=== PATIENT | male | born 2005 | race Caucasian/White ===

== ENCOUNTER 2025-08-04 01:16 | Inpatient (IN) ==
--- NOTE | 2025-08-04 01:36 | Emergency Department Note ---
Impression & Plan Pancreatitis Admission ED Provider Note HPI: History obtained from patient. The patient is a 20-year-old gentleman who presents the emergency department with chief complaint of abdominal pain as well as nausea and vomiting. Patient states that his pain has been worsening throughout the day, he states he woke up this morning with a stomachache and then gradually the symptoms seem to worsen. Patient states he vomited about 5 times today. On arrival here to the ED the patient is hemodynamically stable, he is saturating well on room air, he is afebrile on arrival. ROS: - Per HPI Differential Diagnosis: Viral gastroenteritis, acute appendicitis, acute gastritis, acute pancreatitis, acute cholecystitis, amongst other potential pathologies. *Outpatient medications and allergy history reviewed. PE: General: Alert HEENT: Normocephalic, trachea midline Eyes: Extraocular eye movement is intact, no scleral erythema Pulmonary: Clear to auscultation bilaterally, no wheezing Cardio: Regular rate and rhythm GI: Abdomen is soft to palpation, there is moderate tenderness over the epigastric region to palpation without guarding or rigidity : No suprapubic tenderness MSK: No evidence of trauma or malformation of the extremities, no edema Skin: No evidence of rash Neuro: Alert, no focal deficits Psychiatric: Cooperative INDEPENDENT INTERPRETATIONS: campus monitor: (As interpreted by myself): - An order was placed for continuous cardiac monitoring - Patient was noted to be in sinus rhythm with a rate of 65 Interventions provided in ED: - IV fluid bolus, IV Tylenol, IV Zofran Medical Decision Making: IV was established and lab work obtained, patient was placed on monitor technician. Lab work shows a leukocytosis of 14.9, hemoglobin is normal, platelet count is normal, CMP does not show any evidence of any critical findings, bilirubin is mildly elevated at 1.7, AST of 52, lipase is noted to be elevated at 1182. CT imaging of the abdomen pelvis does show evidence of acute pancreatitis. On my reevaluation the patient does tell me that he has been drinking more heavily since college started several months ago, he states that he drinks 4-5 times per week but over the past week he has actually been drinking every day. Patient states when he does drink alcohol he usually drinks until he passes out. Therefore, I suspect this is likely alcohol induced. I discussed admission with the patient, he is in agreement. [facility] hospitalist service was consulted for admission and the patient was placed for admission in stable condition. Consultants/Discussions held with other healthcare providers: - Hospitalist, Dr. Salas Disposition discussion held by myself with: - Patient Diagnosis: 1. Acute pancreatitis 2. Alcohol use disorder, acute Disposition: Admission Jun Yousif DO Emergency Medicine Past Med/Surg History Problem List Pancreatitis (Acute) No significant past surgical history Medical History Concussion Surgical History No significant past surgical history Social History Smoking Status: Never smoker Tobacco Type: E-cigarettes / Vaping Preferred Language: Croatian marital status: Single current occupational status: student Feels Safe at Home: Yes Allergies Allergies Allergy/AdvReac Type Severity Reaction Status Date / Time No Known Allergies Allergy Verified 08/04/25 02:14 Home Meds Home Medications Medication Instructions Recorded Confirmed No Known Home Medications 02/11/23 08/04/25 Results & Data (ED) Vital Signs Vital Signs - 24 hr 08/04/25 01:20 08/04/25 01:24 08/04/25 01:29 Temperature 36.9 C Temperature Source Temporal Artery Scan Pulse Rate 97 H 80 Pulse Rate [Apical] Pulse Rhythm Regular Pulse Strength Normal Respiratory Rate 18 Respiratory Effort / Characteristics Non-Labored Spontaneous Respiratory Depth Normal Respiratory Pattern Regular Blood Pressure 122/81 Blood Pressure [Right Arm] Blood Pressure Mean 94 Blood Pressure Mean [Right Arm] Blood Pressure Position Sitting Pulse Oximetry 97 100 Oxygen Delivery Method Room Air Room Air Sepsis Recent Fever Within 48 Hours No Sepsis New/Unexplained Change in Mental Status N/A Sepsis Action Taken by Nursing No Action Required 08/04/25 02:00 Temperature Temperature Source Pulse Rate Pulse Rate [Apical] 63 Pulse Rhythm Pulse Strength Respiratory Rate 17 Respiratory Effort / Characteristics Non-Labored Respiratory Depth Normal Respiratory Pattern Regular Blood Pressure Blood Pressure [Right Arm] 140/90 Blood Pressure Mean Blood Pressure Mean [Right Arm] 106 Blood Pressure Position Pulse Oximetry 100 Oxygen Delivery Method Room Air Sepsis Recent Fever Within 48 Hours Sepsis New/Unexplained Change in Mental Status Sepsis Action Taken by Nursing Laboratory Data 08/04/25 01:24 08/04/25 01:24 Lab Results 08/04/25 08/04/25 Range/Units 01:24 01:28 WBC 14.92 H (4.8-10.8) K/ul RBC 6.21 H (4.70-6.10) M/uL Hgb 17.5 (14.0-18.0) g/dl Hct 52.5 H (42.0-52.0) % MCV 84.5 (80.0-100.0) fL MCH 28.2 (25.0-34.0) pg MCHC 33.3 (32.0-36.0) g/dL RDW Std Deviation 43.5 (36.4-46.3) fL RDW Coeff of David 14.5 (11.5-14.5) % Plt Count 280 (130-400) K/uL MPV 8.8 L (9.4-12.4) fL Immature Gran % (Auto) 0.4 % Neut % (Auto) 72.4 % Lymph % (Auto) 17.8 % [place] % (Auto) 8.6 % Eos % (Auto) 0.1 % Baso % (Auto) 0.7 % Neut # (Auto) 10.79 H (1.40-6.50) K/uL Lymph # (Auto) 2.66 (1.20-3.40) K/uL [place] # (Auto) 1.29 H (0.11-0.59) K/uL Eos # (Auto) 0.02 (0.00-0.50) K/uL Baso # (Auto) 0.10 (0.00-0.20) K/uL Immature Gran # (Auto) 0.06 (0.01-0.20) K/uL Sodium 136 (136-145) mmol/L Potassium 4.0 (3.5-5.1) mmol/L Chloride 98 (98-107) mmol/L Carbon Dioxide 28 (21-32) mmol/L Anion Gap 10 (3-11) BUN 17 (6-23) mg/dl Creatinine 1.15 (0.6-1.4) mg/dl Est Cr Clr Drug Dosing 111.5 ml/min eGFR 92.86 BUN/Creatinine Ratio 14.8 (10-20) Glucose 110 H (70-99(Fasting)) mg/dl Calcium 9.7 (8.6-10.3) mg/dl Total Bilirubin 1.7 H (0.2-1.0) mg/dl AST 52 H (13-39) U/L ALT 36 (7-52) U/L Alkaline Phosphatase 79 (34-104) U/L Total Protein 8.4 H (6.0-8.3) gm/dl Albumin 5.0 (3.4-5.0) gm/dl Globulin 3.4 (2.5-4.0) gm/dl Albumin/Globulin Ratio 1.5 (0.9-2) Lipase 1182 H (11-82) U/L Urine Color Dark Yellow Urine Appearance Clear (Clear) Urine pH 6.0 (4.5-7.5) Ur Specific [place]anan 1.034 H (1.000-1.030) Urine Protein 1+ H (Negative) Urine Glucose (UA) Negative (Negative) Urine Ketones Negative (Negative) Urine Blood Negative (Negative) Urine Nitrite Negative (Negative) Urine Bilirubin Negative (Negative) Urine Urobilinogen Negative (Negative) Ur Leukocyte Esterase Negative (Negative) Urine WBC (Auto) 0-5 (0-5) /hpf Urine RBC (Auto) 0-2 (0-2) /hpf U Hyaline Cast (Auto) 3-5 H (0-2) /lpf U Epithel Cells (Auto) 0-2 (0-2) /hpf Urine Bacteria (Auto) None Seen (None Seen) Urine Mucus Present A (None Prsent) Urine Comment Administered Medications Discontinued Medications Sodium Chloride (Nss) 1,000 mls @ 999 mls/hr IV .Q1H1M ONE Stop: 08/04/25 02:34 Last Admin: 08/04/25 01:44 Dose: 999 mls/hr Documented By: SANFORD Acetaminophen (Ofirmev) 1,000 mg in 100 mls @ 400 mls/hr IV NOW STA Stop: 08/04/25 02:01 Last Infusion: 08/04/25 02:26 Dose: Infused Documented By: [facility] Admin: 08/04/25 01:50 Dose: 400 mls/hr Documented By: SANFORD Ioversol (Optiray 320 100ml) 93 ml IV ONCE ONE Stop: 08/04/25 02:32 Last Admin: 08/04/25 02:31 Dose: 93 ml Documented By: PIPER Morphine Sulfate (Morphine Sulfate 4 Mg/Ml 1 Ml Carp\Vial) 4 mg IV NOW STA Stop: 08/04/25 01:35 Last Admin: 08/04/25 01:48 Dose: Not Given Documented By: ML Ondansetron HCl (Ondansetron Inj 2 Mg/Ml 2 Ml Vial) 4 mg IV NOW STA Stop: 08/04/25 01:35 Last Admin: 08/04/25 01:44 Dose: 4 mg Documented By: SANFORD Imaging Data Radiologist's Impression: Abdomen/Pelvis CT 08/04/25 01:34 EXAM: CT abd pelvis IV con only CLINICAL HISTORY: Mid abdominal pain, nausea and vomiting TECHNIQUE: Multiple contiguous axial images were obtained from the level of the diaphragm to the pubic symphysis. This study was acquired after the IV administration of iodinated contrast material, given the patient's indications for the examination. If IV contrast material had not been administered, the likelihood of detecting abnormalities relevant to the patient's condition would have been substantially decreased. Coronal and sagittal reformatted images were generated and reviewed to improve anatomic localization and optimize lesion detection. CT scan was performed according to ALARA (as low as reasonably achievable). COMPARISON: none. FINDINGS: The visualized lung bases are clear. ABDOMEN/PELVIS: The liver is enlarged in size, measuring 18.8 cm in craniocaudal dimension, and shows diffuse parenchymal hypoenhancement. No focal liver lesions are seen. There is no intrahepatic or extrahepatic biliary ductal dilatation. The hepatic vasculature is patent. The gallbladder is unremarkable. The pancreatic head and body are bulky and heterogeneously enhancing, with peripancreatic fluid at the head region and extension of fluid along the right anterior pararenal space. The spleen and adrenal glands are unremarkable. The kidneys are normal in size and attenuation. There is no hydronephrosis or perinephric fat stranding. No renal calculi or renal masses are identified. The ureters are normal in caliber, and no ureteral calculi are seen. The bladder is empty. The prostate is unremarkable. No evidence of focal or diffuse bowel wall thickening or evidence of bowel obstruction is seen. The appendix is visualized in the right lower quadrant and appears within normal limits. No adenopathy or fluid collections are seen. The aorta is normal in caliber. No aggressive appearing osseous lesions are identified. IMPRESSION: 1. Features of acute interstitial pancreatitis with peripancreatic fluid. 2. Moderate hepatomegaly with diffuse hepatic steatosis. Electronically signed by Rocco Cabral 08-04-2025 02:56 AM Discharge Plan Visit Data Chief Complaint: Abdominal Pain Stated Complaint: ABD PAIN, BLOATED ED Provider: Jun Yousif Discharge Problem: Pancreatitis Patient Disposition: Admitted As Inpatient Condition: Fair Forms Stand Alone Forms: [facility] Blink Booking, Important Visit Information Prescriptions Prescriptions: No Action No Known Home Medications Referrals Referrals: [facility] [Primary Care Provider] - Discharge Problem: Pancreatitis Qualifiers: Chronicity: acute Pancreatitis type: alcohol induced Acute pancreatitis complication: unspecified Qualified Code(s): K85.20 - Alcohol induced acute pancreatitis without necrosis or infection
[2025-08-04] MEDS: ONDANSETRON INJ 2 MG/ML 2 ML VIAL IV STA (01:44)
[2025-08-04] MEDS: SODIUM CHLORIDE 0.9% 1,000 ML IV ONE ×2 (01:44→03:03)
[2025-08-04 01:48] LABS: Hematocrit (blood only) 52.5 % (42.0-52.0); Hemoglobin 17.5 g/dl (14.0-18.0); Immature Granulocytes # (auto) 0.06 K/uL (0.01-0.20); Immature Granulocytes % (auto) 0.4 %; Mean Corpuscular Hemoglobin 28.2 pg (25.0-34.0); Mean Corpuscular Volume 84.5 fL (80.0-100.0); Platelet Count 280 K/uL (130-400); RDW Standard Deviation 43.5 fL (36.4-46.3); Red Blood Count 6.21 M/uL (4.70-6.10); White Blood Count 14.92 K/ul (4.8-10.8)
[2025-08-04] MEDS: MoRPHine SULFATE 4 MG/ML 1 ML CARP\\VIAL IV STA ×2 (01:48→03:37)
[2025-08-04] MEDS: ACETAMINOPHEN 1,000 MG/100 ML VIAL IV STA (01:50)
[2025-08-04 01:58] LABS: Appearance Urine Clear (Clear); Bacteria Urine Automated None Seen (None Seen); Epithelial Cell Urine Auto 0-2 /hpf (0-2); Glucose Urine UA Negative (Negative); RBC Urine Automated 0-2 /hpf (0-2); WBC Urine Automated 0-5 /hpf (0-5)
[2025-08-04 02:02] LABS: Anion Gap 10 (3-11); Blood Urea Nitrogen 17 mg/dl (6-23); Calcium 9.7 mg/dl (8.6-10.3); Carbon Dioxide 28 mmol/L (21-32); Chloride 98 mmol/L (98-107); Creatinine Clr Calc Pharmacy 111.5 ml/min; Glucose 110 mg/dl (70-99(Fasting)); Potassium 4.0 mmol/L (3.5-5.1); Sodium 136 mmol/L (136-145)
[2025-08-04 02:19] LABS: Alanine Aminotransferase 36 U/L (7-52); Albumin Globulin Ratio 1.5 (0.9-2); Albumin Level 5.0 gm/dl (3.4-5.0); Alkaline Phosphatase 79 U/L (34-104); Bilirubin,Total 1.7 mg/dl (0.2-1.0); Globulin 3.4 gm/dl (2.5-4.0); Lipase 1182 U/L (11-82); Total Protein 8.4 gm/dl (6.0-8.3)
[2025-08-04] MEDS: OPTIRAY 320 100ml IV ONE (02:31)
--- NOTE | 2025-08-04 02:56 | CT Scan Report ---
EXAM: CT abd pelvis IV con only CLINICAL HISTORY: Mid abdominal pain, nausea and vomiting TECHNIQUE: Multiple contiguous axial images were obtained from the level of the diaphragm to the pubic symphysis. This study was acquired after the IV administration of iodinated contrast material, given the patient's indications for the examination. If IV contrast material had not been administered, the likelihood of detecting abnormalities relevant to the patient's condition would have been substantially decreased. Coronal and sagittal reformatted images were generated and reviewed to improve anatomic localization and optimize lesion detection. CT scan was performed according to ALARA (as low as reasonably achievable). COMPARISON: none. FINDINGS: The visualized lung bases are clear. ABDOMEN/PELVIS: The liver is enlarged in size, measuring 18.8 cm in craniocaudal dimension, and shows diffuse parenchymal hypoenhancement. No focal liver lesions are seen. There is no intrahepatic or extrahepatic biliary ductal dilatation. The hepatic vasculature is patent. The gallbladder is unremarkable. The pancreatic head and body are bulky and heterogeneously enhancing, with peripancreatic fluid at the head region and extension of fluid along the right anterior pararenal space. The spleen and adrenal glands are unremarkable. The kidneys are normal in size and attenuation. There is no hydronephrosis or perinephric fat stranding. No renal calculi or renal masses are identified. The ureters are normal in caliber, and no ureteral calculi are seen. The bladder is empty. The prostate is unremarkable. No evidence of focal or diffuse bowel wall thickening or evidence of bowel obstruction is seen. The appendix is visualized in the right lower quadrant and appears within normal limits. No adenopathy or fluid collections are seen. The aorta is normal in caliber. No aggressive appearing osseous lesions are identified. IMPRESSION: 1. Features of acute interstitial pancreatitis with peripancreatic fluid. 2. Moderate hepatomegaly with diffuse hepatic steatosis. Electronically signed by Rocco Cabral 08-04-2025 02:56 AM
--- NOTE | 2025-08-04 03:36 | History & Physical Report ---
Date of Service August 04, 2025 Assessment & Plan (1) Pancreatitis, alcoholic, acute: (2) Nausea and vomiting: (3) Alcohol use disorder: (4) Abnormal LFTs (liver function tests): Plan Patient is a 20-year-old [employer] student who presented due to abdominal pain, nausea, vomiting that worsened throughout the day found to have pancreatitis with a lipase of 1182. This is thought to be secondary to alcohol use disorder. #pancreatitis - Suspect 2/2 alcohol use disorder. No previous history of pancreatitis. Leukocytosis, WBC 14.92. Lipase 1182. CTAP admission showing acute pancreatitis, moderate hepatomegaly, diffuse hepatic steatosis, no gallbladder abnormalities. Is not on any home medications. 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 Typically drinks 3 to 4 days/week at baseline. - no symptoms of withdrawal on admission - AWSS at risk protocol with IV Ativan - Thiamine IV 100mg and folic acid 1mg IV QAM - folate, B12, B1 levels ordered - Etoh level ordered - seizure precautions #elevated t bili - likely 2/2 pancreatitis above. T bili 1.7, AST 52, remained LFTs WNL. - trend CMP VTE ppx: SCDs, low risk Dispo: med/tele Admission and Anticipated Discharge Date Admission Date: 08/04/25 History of Present Illness Chief Complaint: abdominal pain Primary Care Provider: [facility] Patient is a 20-year-old [employer] student who presented due to abdominal pain, nausea, vomiting that worsened throughout the day found to have pancreatitis with a lipase of 1182. This is thought to be secondary to alcohol use disorder. Patient seen at bedside. He stated throughout the day he has had worsening abdominal pain currently very significant however unable to quantify on the pain scale, pain does radiate to his back. He has had 1 dose of Tylenol 1G IV, morphine 4 Mg IV ordered to trial. He stated he vomited approximately 5 times today without any hematemesis. He also endorses dyspnea as it is difficult to breathe with his pain. Patient stated that during the college school year he does drink often typically 3-4 times per week in which she does blackout. This past week he has however drink every single day to the point of blacking out, he typically drinks liquor and stated he probably had 15-16 shots per day this week. He stated he does go several weeks occasionally without drinking like when he is home on breaks and does endorse signs of withdrawal during these breaks such as tachycardia, nausea, diaphoresis. He denies ever having a seizure from alcohol withdrawal. He does not take any medications at home. He wishes to be full code. He stated his family does have a history of high cholesterol. Allergies Allergy/AdvReac Type Severity Reaction Status Date / Time No Known Allergies Allergy Verified 08/04/25 02:14 Home Medications Medication Instructions Recorded Confirmed Type No Known Home Medications 02/11/23 08/04/25 History Past Med/Surg History Problem List Abnormal LFTs (liver function tests) Nausea and vomiting Pancreatitis, alcoholic, acute Alcohol use disorder Pancreatitis (Acute) No significant past surgical history Medical History Concussion Surgical History No significant past surgical history Social History Smoking Status: Light tobacco smoker Tobacco Type: Cigarettes Second Hand Exposure: No; Do You Dip or Chew Tobacco: No; Tobacco Cessation Education Requested by Patient: No Hx Alcohol Use: Yes Alcohol type: hard liquor Hx Substance Use: Yes Preferred Language: Spanish Communication Ability: Effective Beliefs That Will Affect Care: None marital status: Single Current Living Situation: Other Current Living Situation Comment: roommate current occupational status: student Other Information That Helps Us Care for You: No Feels Safe at Home: Yes Safety Concerns: Feels Safe At This Time Assistive Devices: None Review of Systems Review of Systems: see HPI Physical Exam Physical Exam: The patient is awake, alert and oriented 3, well developed and well nourished, normocephalic and atraumatic, in no acute distress. Non-toxic appearing. HEENT- EOMI, mucous membranes moist. Hearing grossly intact. Heart-normal S1 and S2. No murmurs, rubs or gallops. Lungs-clear bilaterally, no respiratory distress, no accessory muscle use. Abdomen-normal bowel sounds and soft. No ascites noted. Tender to epigastric re gion. Extremities- no clubbing, cyanosis, or edema. Rheumatologic-normal range of motion. Psychiatric-normal affect. Results & Data Results & Data Vital Signs (Past 12 Hours) Vital Signs Temp Pulse Pulse Resp BP BP Pulse Ox 08/04/25 02:00 63 17 140/90 100 08/04/25 01:29 80 08/04/25 01:24 100 08/04/25 01:20 36.9 C 97 H 18 122/81 97 O2 Del Method 08/04/25 02:00 Room Air 08/04/25 01:29 08/04/25 01:24 Room Air 08/04/25 01:20 Room Air Laboratory Results reviewed cbc, cmp, lipase, ua Diagnostic Findings reviewed AP CT Medications Administered ED - 2L NSS bolus, Morphine 4 mg IV, Tylenol 1G IV, Zofran 4 Mg IV Code Status & VTE Plan Code Status Full code VTE Prophylaxis Plan VTE Prophylaxis will be ordered: Yes Supervising Physician Co-Signing Physician Notes Attending addendum: I have physically seen this patient, have supervised the JEMMA's activities, and agree with the H&P unless as otherwise noted. Assessment and Plan: Patient is a 20-year-old male [employer] student with no significant past medical history who presents to the emergency department with abdominal pain, nausea, vomiting worsened throughout the day. Laboratories showed a lipase of 1182, AST 52, total bilirubin 1.7. Urinalysis with negative. Pancreatitis- Patient reports he drinks up to 15 drinks a day until he passes out. CT scan abdomen pelvis with acute interstitial pancreatitis, moderate hepatomegaly, and diffuse hepatic steatosis. Clear liquid diet advance as tolerated Status post 2 L normal saline bolus in the ED Continue IV fluid rehydration with LR at 50 mL/h x 1 L Zofran 4 mg IV every 6 hours as needed Avoid Tylenol Check a fasting lipid panel to assess triglyceride levels Follow serial CBC with differential and chemistry profile Alcohol use disorder- Counseling AWSS protocol with IV Ativan Thiamine 100 mg IV now and folic acid 1 mg IV now, and then every morning Ordered alcohol level Seizure precautions Remaining orders and notations as noted PG Care Time/CCT Total # of Minutes Spent Total Time Spent with Patient: Total time spent is greater than 50% in coordination of care (as documented) at patient's floor/unit and/or counseling patient: Coding Level of Care Code 27948 INT INP/OBS CARE 375MIN Diagnoses Pancreatitis, alcoholic, acute K85.20 Nausea and vomiting R11.2 Alcohol use disorder F10.90 Abnormal LFTs (liver function tests) R79.89
[2025-08-04 04:05] LABS: Cholesterol 125 mg/dl (0-200); HDL Cholesterol 31 mg/dl; Triglycerides 589 mg/dl (0-150)
[2025-08-04] MEDS ORDERED: LORazepam Inj 1 MG in SYRINGE 0.5 ML IV PRN (05:04)
[2025-08-04] MEDS ORDERED: ACETAMINOPHEN 1,000 MG/100 ML VIAL IV PRN (05:04)
[2025-08-04] MEDS ORDERED: ONDANSETRON INJ 2 MG/ML 2 ML VIAL IV PRN (05:04)
[2025-08-04] MEDS ORDERED: NALOXONE HCL 0.4 MG/1 ML VIAL/CARP IV PRN (05:04)
[2025-08-04] MEDS ORDERED: MoRPHine SULFATE 4 MG/ML 1 ML CARP\\VIAL IV PRN (05:23)
[2025-08-04 05:36] LABS: INR 1.1 (0.9-1.1); Prothrombin Time 11.6 Seconds (9.0-12.0)
[2025-08-04 05:43] LABS: Folate (Folic Acid),Ser orPlas 16.08 ng/ml (>5.38)
[2025-08-04 05:44] LABS: Vitamin B12 286.0 pg/ml (180-914)
[2025-08-04] MEDS: LACTATED RINGER'S 1,000 ML IV SCH (05:44)
[2025-08-04] MEDS: MoRPHine SULFATE 4 MG/ML 1 ML CARP\\VIAL IV PRN (06:42)
[2025-08-04 08:17] LABS: Hemoglobin A1C 5.1 % (4.5-5.6)
[2025-08-04] MEDS: FOLIC ACID 1 MG in SYRINGE 9.8 ML IV SCH (08:55)
[2025-08-04] MEDS: THIAMINE HCL 100 MG in SYRINGE 9 ML IV SCH (08:55)
--- NOTE | 2025-08-04 15:00 | Hospitalist Progress Note ---
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 This is thought to be secondary to alcohol use disorder. #pancreatitis - Suspect 2/2 alcohol use disorder. No previous history of pancreatitis. Leukocytosis, WBC 14.92. Lipase 1182. CTAP admission showing acute pancreatitis, moderate hepatomegaly, diffuse hepatic steatosis, no gallbladder abnormalities. Is not on any home medications. - received 2L NSS in ED; continue with fluid resuscitation with LR @ 150 ml/hr - clear liquid diet, advance as tolerated - nausea control with Zofran prn - pain control with IV Tylenol 1G prn, morphine 2/4mg for breakthrough pain - lipid panel ordered to eval triglyceride levels - trend CBC and CMP - still some pain, conintue NPO and IVF with parentaral pain mgmt. Resume diet tomorrow if doing well. 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 Typically drinks 3 to 4 days/week at baseline. - no symptoms of withdrawal on admission - AWSS at risk protocol with IV Ativan - Thiamine IV 100mg and folic acid 1mg IV QAM - folate, B12, B1 levels ordered - Etoh level ordered - seizure precautions #elevated t bili - likely 2/2 pancreatitis above. T bili 1.7, AST 52, remained LFTs WNL. - trend CMP, AM check VTE ppx: SCDs, low risk Dispo: med/tele Admission and Anticipated Discharge Date Admission Date: August 04, 2025 Subjective slight amount of pain this morning mostly after starting his clear fluids. Will hold back and make him n.p.o. the rest of the day. Continue to monitor with conservative measures. no events or new concners. Physical Exam Physical Exam: The patient is awake, alert and oriented 3, well developed and well nourished, normocephalic and atraumatic, in no acute distress. Non-toxic appearing. HEENT- EOMI, mucous membranes moist. Hearing grossly intact. Heart-normal S1 and S2. No murmurs, rubs or gallops. Lungs-clear bilaterally, no respiratory distress, no accessory muscle use. Abdomen-normal bowel sounds and soft. No ascites noted. Tender to epigastric region. Extremities- no clubbing, cyanosis, or edema. Rheumatologic-normal range of motion. Psychiatric-normal affect. Results & Data Results & Data Vital Signs (Past 12 Hours) Vital Signs Temp Pulse Pulse Pulse Resp BP Pulse Ox 08/04/25 13:01 68 08/04/25 11:19 36.6 C 69 18 134/87 99 08/04/25 07:22 36.7 C 64 18 135/85 98 08/04/25 06:45 59 L 08/04/25 05:04 68 08/04/25 05:00 37.2 C 54 L 18 119/75 97 08/04/25 04:04 69 16 118/70 98 O2 Del Method 08/04/25 13:01 08/04/25 11:19 Room Air 08/04/25 07:22 Room Air 08/04/25 06:45 08/04/25 05:04 08/04/25 05:00 Room Air 08/04/25 04:04 Room Air Laboratory Results 08/04/25 08/04/25 08/04/25 04:35 01:28 01:24 WBC 14.92 H RBC 6.21 H Hgb 17.5 Hct 52.5 H MCV 84.5 MCH 28.2 MCHC 33.3 RDW Std Deviation 43.5 RDW Coeff of David 14.5 Plt Count 280 MPV 8.8 L Immature Gran % (Auto) 0.4 Neut % (Auto) 72.4 Lymph % (Auto) 17.8 [place] % (Auto) 8.6 Eos % (Auto) 0.1 Baso % (Auto) 0.7 Neut # (Auto) 10.79 H Lymph # (Auto) 2.66 [place] # (Auto) 1.29 H Eos # (Auto) 0.02 Baso # (Auto) 0.10 Immature Gran # (Auto) 0.06 PT 11.6 INR 1.1 Sodium 136 Potassium 4.0 Chloride 98 Carbon Dioxide 28 Anion Gap 10 BUN 17 Creatinine 1.15 Est Cr Clr Drug Dosing 111.5 eGFR 92.86 BUN/Creatinine Ratio 14.8 Glucose 110 H Estimat Average Glucose 100 Hemoglobin A1c 5.1 Calcium 9.7 Total Bilirubin 1.7 H AST 52 H ALT 36 Alkaline Phosphatase 79 Total Protein 8.4 H Albumin 5.0 Globulin 3.4 Albumin/Globulin Ratio 1.5 Triglycerides 589 H Cholesterol 125 LDL Cholesterol, Calc TNP VLDL Cholesterol, Calc TNP HDL Cholesterol 31 Cholesterol/HDL Ratio 4.0 Lipase 1182 H Vitamin B12 286 Folate 16.08 Urine Color Dark Yellow Urine Appearance Clear Urine pH 6.0 Ur Specific [place] 1.034 H Urine Protein 1+ H Urine Glucose (UA) Negative Urine Ketones Negative Urine Blood Negative Urine Nitrite Negative Urine Bilirubin Negative Urine Urobilinogen Negative Ur Leukocyte Esterase Negative Urine WBC (Auto) 0-5 Urine RBC (Auto) 0-2 U Hyaline Cast (Auto) 3-5 H U Epithel Cells (Auto) 0-2 Urine Bacteria (Auto) None Seen Urine Mucus Present A Urine Comment Ethyl Alcohol mg/dL < 10.0 Diagnostic Findings Abdomen/Pelvis CT 08/04/25 01:34 EXAM: CT abd pelvis IV con only CLINICAL HISTORY: Mid abdominal pain, nausea and vomiting TECHNIQUE: Multiple contiguous axial images were obtained from the level of the diaphragm to the pubic symphysis. This study was acquired after the IV administration of iodinated contrast material, given the patient's indications for the examination. If IV contrast material had not been administered, the likelihood of detecting abnormalities relevant to the patient's condition would have been substantially decreased. Coronal and sagittal reformatted images were generated and reviewed to improve anatomic localization and optimize lesion detection. CT scan was performed according to ALARA (as low as reasonably achievable). COMPARISON: none. FINDINGS: The visualized lung bases are clear. ABDOMEN/PELVIS: The liver is enlarged in size, measuring 18.8 cm in craniocaudal dimension, and shows diffuse parenchymal hypoenhancement. No focal liver lesions are seen. There is no intrahepatic or extrahepatic biliary ductal dilatation. The hepatic vasculature is patent. The gallbladder is unremarkable. The pancreatic head and body are bulky and heterogeneously enhancing, with peripancreatic fluid at the head region and extension of fluid along the right anterior pararenal space. The spleen and adrenal glands are unremarkable. The kidneys are normal in size and attenuation. There is no hydronephrosis or perinephric fat stranding. No renal calculi or renal masses are identified. The ureters are normal in caliber, and no ureteral calculi are seen. The bladder is empty. The prostate is unremarkable. No evidence of focal or diffuse bowel wall thickening or evidence of bowel obstruction is seen. The appendix is visualized in the right lower quadrant and appears within normal limits. No adenopathy or fluid collections are seen. The aorta is normal in caliber. No aggressive appearing osseous lesions are identified. IMPRESSION: 1. Features of acute interstitial pancreatitis with peripancreatic fluid. 2. Moderate hepatomegaly with diffuse hepatic steatosis. Electronically signed by Rocco Cabral 08-04-2025 02:56 AM PG Care Time/CCT Total # of Minutes Spent Total Time Spent with Patient: Total time spent is greater than 50% in coordination of care (as documented) at patient's floor/unit and/or counseling patient: Coding Level of Care Code 20102 SUB INP/OBS CARE 2/35MIN Diagnoses Pancreatitis, alcoholic, acute K85.20 Nausea and vomiting R11.2 Alcohol use disorder F10.90 Abnormal LFTs (liver function tests) R79.89
[2025-08-05 06:42] LABS: Hematocrit (blood only) 48.4 % (42.0-52.0); Hemoglobin 16.6 g/dl (14.0-18.0); Immature Granulocytes # (auto) 0.03 K/uL (0.01-0.20); Immature Granulocytes % (auto) 0.2 %; Mean Corpuscular Hemoglobin 29.1 pg (25.0-34.0); Mean Corpuscular Volume 84.9 fL (80.0-100.0); Platelet Count 166 K/uL (130-400); RDW Standard Deviation 43.7 fL (36.4-46.3); Red Blood Count 5.70 M/uL (4.70-6.10); White Blood Count 12.43 K/ul (4.8-10.8)
[2025-08-05 07:17] LABS: Alanine Aminotransferase 16.0 U/L (7-52); Albumin Globulin Ratio 1.3 (0.9-2); Albumin Level 3.5 gm/dl (3.4-5.0); Alkaline Phosphatase 57.0 U/L (34-104); Anion Gap 6.0 (3-11); Bilirubin,Total 2.0 mg/dl (0.2-1.0); Blood Urea Nitrogen 10.0 mg/dl (6-23); Calcium 9.0 mg/dl (8.6-10.3); Carbon Dioxide 29.0 mmol/L (21-32); Chloride 97.0 mmol/L (98-107); Creatinine Clr Calc Pharmacy 139.4 ml/min; Globulin 2.7 gm/dl (2.5-4.0); Glucose 96.0 mg/dl (70-99(Fasting)); Magnesium 1.7 mg/dl (1.7-2.4); Potassium 4.6 mmol/L (3.5-5.1); Sodium 132.0 mmol/L (136-145); Total Protein 6.2 gm/dl (6.0-8.3)
--- NOTE | 2025-08-05 15:41 | Hospitalist Progress Note ---
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 This is thought to be secondary to alcohol use disorder. #pancreatitis - Suspect 2/2 alcohol use disorder. No previous history of pancreatitis. Leukocytosis, WBC 14.92. Lipase 1182. CTAP admission showing acute pancreatitis, moderate hepatomegaly, diffuse hepatic steatosis, no gallbladder abnormalities. Is not on any home medications. - received 2L NSS in ED; continue with fluid resuscitation with LR @ 150 ml/hr - clear liquid diet, advance as tolerated - nausea control with Zofran prn - advance diet as tolerated, doing OK with clears today - recheck lipase in the AM - clinically improving, ready for DC once he is able to complete adequate PO #Hypertriglyceridemia -levels >500, no known Family history. This could well be secondary to his heavy recent alcohol use as well. - Will continue to monitor. Once he is out of the acute interval here he should follow-up in the primary clinic to antidiscussed lipid-lowering agents - discussed with rehabilitation case coordinator a referral to the residency clinic here such that he will have access to a broader spectrum of treatment options than likely through [facility] #alcohol use disorder - patient drinks more during the college school year, over the past week has had 15-16 shots of liquor per day to the point of "blacking out". Typically drinks 3 to 4 days/week at baseline. - no symptoms of withdrawal - discussed the role of alcohol in regards to pancreatitis with the patient today. He is very understanding. Advised total abstinence from alcohol moving forward #elevated t bili - likely 2/2 pancreatitis above. T bili 1.7, AST 52, remained L FTs WNL. - trend CMP VTE ppx: SCDs, low risk Dispo: med/tele Admission and Anticipated Discharge Date Admission Date: August 04, 2025 Subjective Doing okay this morning. A little bit of dyspepsia with eating breakfast. Only took mostly fluids. No return of actual pain. Small amount of urine. No new or different symptoms. We talked at length of the role of his triglycerides and ongoing alcohol use in regards to pancreatitis. He reported a very high risk history on presentation. He does not recall any specific family history but thinks an older relative may have had pancreatic issues. Otherwise no events or new concerns per nursing he is sleeping okay. Physical Exam Physical Exam: The patient is awake, alert and oriented 3, well developed and well nourished, normocephalic and atraumatic, in no acute distress. Non-toxic appearing. HEENT- EOMI, mucous membranes moist. Hearing grossly intact. Heart-normal S1 and S2. No murmurs, rubs or gallops. Lungs-clear bilaterally, no respiratory distress, no accessory muscle use. Abdomen-normal bowel sounds and soft. No ascites noted. Tender to epigastric region. Extremities- no clubbing, cyanosis, or edema. Rheumatologic-normal range of motion. Psychiatric-normal affect. Results & Data Results & Data Vital Signs (Past 12 Hours) Vital Signs Temp Pulse Pulse Resp BP Pulse Ox O2 Del Method 08/05/25 14:36 77 08/05/25 10:37 37.0 C 88 20 113/66 96 Room Air 08/05/25 07:32 84 08/05/25 07:24 37.0 C 84 20 129/83 98 Room Air Laboratory Results 08/05/25 05:36 WBC 12.43 H RBC 5.70 Hgb 16.6 Hct 48.4 MCV 84.9 MCH 29.1 MCHC 34.3 RDW Std Deviation 43.7 RDW Coeff of David 14.1 Plt Count 166 MPV 9.5 Immature Gran % (Auto) 0.2 Neut % (Auto) 83.2 Lymph % (Auto) 8.6 [place] % (Auto) 7.5 Eos % (Auto) 0.3 Baso % (Auto) 0.2 Neut # (Auto) 10.33 H Lymph # (Auto) 1.07 L [place] # (Auto) 0.93 H Eos # (Auto) 0.04 Baso # (Auto) 0.03 Immature Gran # (Auto) 0.03 Sodium 132 L Potassium 4.6 Chloride 97 L Carbon Dioxide 29 Anion Gap 6 BUN 10 Creatinine 0.92 Est Cr Clr Drug Dosing 139.4 eGFR 121.37 BUN/Creatinine Ratio 10.9 Glucose 96 Calcium 9.0 Magnesium 1.7 Total Bilirubin 2.0 H AST 24 ALT 16 Alkaline Phosphatase 57 C-Reactive Protein 11.26 H Total Protein 6.2 D Albumin 3.5 Globulin 2.7 Albumin/Globulin Ratio 1.3 PG Care Time/CCT Total # of Minutes Spent Total Time Spent with Patient: Total time spent is greater than 50% in coordination of care (as documented) at patient's floor/unit and/or counseling patient: Coding Level of Care Code 69131 SUB INP/OBS CARE 2/35MIN Diagnoses Pancreatitis, alcoholic, acute K85.20 Nausea and vomiting R11.2 Alcohol use disorder F10.90 Abnormal LFTs (liver function tests) R79.89
[2025-08-05] MEDS: ACETAMINOPHEN 500 MG TAB PO PRN (16:22)
[2025-08-06] MEDS: MELATONIN 3 MG TAB PO PRN (02:16)
[2025-08-06 06:32] LABS: Hematocrit (blood only) 45.2 % (42.0-52.0); Hemoglobin 14.9 g/dl (14.0-18.0); Immature Granulocytes # (auto) 0.07 K/uL (0.01-0.20); Immature Granulocytes % (auto) 0.6 %; Mean Corpuscular Hemoglobin 28.1 pg (25.0-34.0); Mean Corpuscular Volume 85.3 fL (80.0-100.0); Platelet Count 142 K/uL (130-400); RDW Standard Deviation 43.6 fL (36.4-46.3); Red Blood Count 5.30 M/uL (4.70-6.10); White Blood Count 11.20 K/ul (4.8-10.8)
[2025-08-06 07:25] LABS: Calcium 9.1 mg/dl (8.6-10.3); Carbon Dioxide 28.0 mmol/L (21-32); Chloride 97.0 mmol/L (98-107); Potassium 4.4 mmol/L (3.5-5.1); Sodium 133.0 mmol/L (136-145)
[2025-08-06 07:26] LABS: Alanine Aminotransferase 13.0 U/L (7-52); Albumin Globulin Ratio 1.0 (0.9-2); Albumin Level 3.3 gm/dl (3.4-5.0); Alkaline Phosphatase 52.0 U/L (34-104); Anion Gap 8.0 (3-11); Bilirubin,Total 1.6 mg/dl (0.2-1.0); Blood Urea Nitrogen 8.0 mg/dl (6-23); Creatinine Clr Calc Pharmacy 156.4 ml/min; Globulin 3.4 gm/dl (2.5-4.0); Glucose 86.0 mg/dl (70-99(Fasting)); Total Protein 6.7 gm/dl (6.0-8.3)
[2025-08-06] MEDS: DOCUSATE SODIUM 100 MG CAP PO PRN (08:24)
[2025-08-06 08:39] LABS: Lipase 461.0 U/L (11-82)
--- NOTE | 2025-08-06 11:23 | Hospitalist Progress Note ---
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 This is thought to be secondary to alcohol use disorder. #pancreatitis - Suspect 2/2 alcohol use disorder. No previous history of pancreatitis. Leukocytosis, WBC 14.92. Lipase 1182. CTAP admission showing acute pancreatitis, moderate hepatomegaly, diffuse hepatic steatosis, no gallbladder abnormalities. Is not on any home medications. - received 2L NSS in ED; continue with fluid resuscitation with LR @ 150 ml/hr - clear liquid diet, advance as tolerated - nausea control with Zofran prn - advance diet as tolerated, doing OK with clears today - recheck lipase in the AM with slow relative improvement, no clinical setback or deterioration, CRP increased overnight - Check RUQ US, continue cuatioous advance of diet, trend CRP and lipase - Low threshold to repeat CT pending US result #Hypertriglyceridemia -levels >500, no known Family history. This could well be secondary to his heavy recent alcohol use as well. - Will continue to monitor. Once he is out of the acute interval here he should follow-up in the primary clinic to antidiscussed lipid-lowering agents - discussed with family service caseworker a referral to the residency clinic here such that he will have access to a broader spectrum of treatment options than likely through [facility] - this has been setup by CM #alcohol use disorder - patient drinks more during the college school year, over the past week has had 15-16 shots of liquor per day to the point of "blacking out". Typically drinks 3 to 4 days/week at baseline. - no symptoms of withdrawal - discussed the role of alcohol in regards to pancreatitis with the patient today. He is very understanding. Advised total abstinence from alcohol moving forward #elevated t bili - likely 2/2 pancreatitis above. T bili 1.7, AST 52, remained LFTs WNL. - trend CMP VTE ppx: SCDs, low risk Dispo: med/tele Admission and Anticipated Discharge Date Admission Date: August 04, 2025 Subjective doing okay this morning. Appetite is increased a bit. He still having some pressure and discomfort in the abdomen. Mild tenderness to palpation. No nausea or vomiting. No diarrhea. family is present and does endorse that he has a strong family history of elevated cholesterol levels and family members multiple members with coronary disease and heart attacks but none with pancreatitis that we are aware of. Lengthy discussion with patient and mom who is present at the bedside in regards to risk factors and ongoing management. Physical Exam Physical Exam: The patient is awake, alert and oriented 3, well developed and well nourished, normocephalic and atraumatic, in no acute distress. Non-toxic appearing. HEENT- EOMI, mucous membranes moist. Hearing grossly intact. Heart-normal S1 and S2. No murmurs, rubs or gallops. Lungs-clear bilaterally, no respiratory distress, no accessory muscle use. Abdomen-normal bowel sounds and soft. No ascites noted. Tender to epigastric region now to RLQ, no guarding or rebound. Extremities- no clubbing, cyanosis, or edema. Rheumatologic-normal range of motion. Psychiatric-normal affect. Results & Data Results & Data Vital Signs (Past 12 Hours) Vital Signs Temp Pulse Resp BP Pulse Ox O2 Del Method 08/06/25 11:18 36.6 C 78 18 128/78 96 Room Air 08/06/25 07:57 36.7 C 75 18 106/69 96 Room Air 08/06/25 02:16 36.5 C 90 19 116/73 96 Room Air 08/05/25 23:37 37.0 C 85 18 128/79 96 Room Air Laboratory Results 08/06/25 05:32 WBC 11.20 H RBC 5.30 Hgb 14.9 Hct 45.2 MCV 85.3 MCH 28.1 MCHC 33.0 RDW Std Deviation 43.6 RDW Coeff of David 14.0 Plt Count 142 MPV 9.3 L Immature Gran % (Auto) 0.6 Neut % (Auto) 79.9 Lymph % (Auto) 9.8 [place] % (Auto) 8.3 Eos % (Auto) 1.0 Baso % (Auto) 0.4 Neut # (Auto) 8.95 H Lymph # (Auto) 1.10 L [place] # (Auto) 0.93 H Eos # (Auto) 0.11 Baso # (Auto) 0.04 Immature Gran # (Auto) 0.07 Sodium 133 L Potassium 4.4 Chloride 97 L Carbon Dioxide 28 Anion Gap 8 BUN 8 Creatinine 0.82 Est Cr Clr Drug Dosing 156.4 eGFR 128.17 BUN/Creatinine Ratio 9.8 L Glucose 86 Calcium 9.1 Total Bilirubin 1.6 H AST 22 ALT 13 Alkaline Phosphatase 52 C-Reactive Protein 16.62 H Total Protein 6.7 Albumin 3.3 L Globulin 3.4 Albumin/Globulin Ratio 1.0 Lipase 461 H PG Care Time/CCT Total # of Minutes Spent Total Time Spent with Patient: Total time spent is greater than 50% in coordination of care (as documented) at patient's floor/unit and/or counseling patient: Coding Level of Care Code 69381 SUB INP/OBS CARE 235MIN Diagnoses Pancreatitis, alcoholic, acute K85.20 Nausea and vomiting R11.2 Alcohol use disorder F10.90 Abnormal LFTs (liver function tests) R79.89
--- NOTE | 2025-08-06 14:50 | Ultrasound Report ---
US liver CLINICAL HISTORY: Pancreatitis, rule out stone. COMPARISON STUDY: CT of the abdomen and pelvis August 04, 2025. FINDINGS: A small left pleural effusion is incidentally noted. A small amount of upper abdominal asci deena is present. There is no biliary ductal dilatation. The common bile duct measures 4 mm in caliber. There are no gallstones within the gallbladder. Gallbladder wall thickness is at the upper limits of normal. No common bile duct calculi are identified. The pancreas is obscured by overlying bowel gas. There is no right hydronephrosis. IMPRESSION: 1. No gallstones. No biliary ductal dilatation. No common bile duct calculi identified. 2. Obscured pancreas. 3. Small amount of upper abdominal ascites and a small left pleural effusion. ACT 112: Negative or not required by law. Electronically signed by: Jaylan Ross M.D. 08/06/2025 2:49 PM
[2025-08-07 06:59] LABS: Hematocrit (blood only) 41.6 % (42.0-52.0); Hemoglobin 14.2 g/dl (14.0-18.0); Immature Granulocytes # (auto) 0.05 K/uL (0.01-0.20); Immature Granulocytes % (auto) 0.6 %; Mean Corpuscular Hemoglobin 29.1 pg (25.0-34.0); Mean Corpuscular Volume 85.2 fL (80.0-100.0); Platelet Count 172 K/uL (130-400); RDW Standard Deviation 42.3 fL (36.4-46.3); Red Blood Count 4.88 M/uL (4.70-6.10); White Blood Count 9.01 K/ul (4.8-10.8)
[2025-08-07 07:33] VITALS: RESP 18
[2025-08-07 07:37] LABS: Alanine Aminotransferase 11.0 U/L (7-52); Albumin Globulin Ratio 0.9 (0.9-2); Albumin Level 3.4 gm/dl (3.4-5.0); Alkaline Phosphatase 57.0 U/L (34-104); Anion Gap 6.0 (3-11); Bilirubin,Total 1.0 mg/dl (0.2-1.0); Blood Urea Nitrogen 10.0 mg/dl (6-23); Calcium 9.2 mg/dl (8.6-10.3); Carbon Dioxide 31.0 mmol/L (21-32); Chloride 98.0 mmol/L (98-107); Creatinine Clr Calc Pharmacy 166.6 ml/min; Globulin 3.7 gm/dl (2.5-4.0); Glucose 94.0 mg/dl (70-99(Fasting)); Lipase 175.0 U/L (11-82); Potassium 4.1 mmol/L (3.5-5.1); Sodium 135.0 mmol/L (136-145); Total Protein 7.1 gm/dl (6.0-8.3)
--- NOTE | 2025-08-07 09:39 | Gastrointestinal Consultation ---
Date of Consultation August 07, 2025 Assessment & Plan (1) Alcohol use disorder: 20 year old male without past medical history admitted w/ abdominal pain, nausea/vomiting w/ CT evidence of acute pancreatitis w/o appreciation of gallstones. Suspect his increase ETOH intake is related to this bout of panc reatitis. He has clinically improved, is tolerating low-fat diet and is pain free. He should continue with a low fat diet for the next 4-6 weeks. Discussed ETOH cessation in great detail. Advised complete abstinence from ETOH. He verbalized understand and is agreeable to a change in his lifestyle. He should follow up with his primary care provider as an OP given his elevated triglycerides. Outpa tient GI follow up regarding his fatty liver. As this is his first bout of pancreatitis and there is no family history, no further testing is needed. If there are recurrent bouts of pancreatitis, suggests he undergo genetic testing and further imaging at that time. I spent a total of 60 minutes on the date of service in review of patient's record, and previously obtained information in person and appropriate medical visit, discussion and education of plan, with patient and/or caregiver, placing orders for tests/referral/procedures as medically necessary and documentation of pertinent clinical information in patient's medical records for their visit today. Supervising Physician Co-Signing Physician Notes Patient seen prior to discharge. Reviewed with nurse practitioner I agree with plan as outlined above. This appears to be alcohol related pancreatitis. Patient has been advised at high risk of reoccurrence or recurrent pancreatitis with alcohol ingestion. Management is long-term abstinence. Return to see GI if recurrent or persistent abdominal pain. History of Present Illness Reason for Consultation: Pancretitis, poss familial hypertriglyceridemia Requesting Physician: Larry Velasquez MD Attending Physician: Larry Velasquez MD History of Present Illness 20 year old male without past medical history presenting on 08/04/25 w/ abdominal pain, nausea/vomiting - admitted w/ acute pancreatitis. GI was asked to evaluate. Pt was seen and evaluated, chart reviewed. Suggests 3-5 days a week he has significant ETOH intake which is estimated at 15+ shots at a time. Since admission, he has improved daily. Yesterday began dietary advancement which he notes he is tolerated. Just completed breakfast without abdominal pain. 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 Planning to move to a city after graduation. No family history of pancreatitis No previous bouts of pancreatitis Lipase 1182 -->175 TB 1.0 AST 19 ALT 11 ALKP 57 Triglycerides 589 ABD US: No gallstones. No biliary ductal dilatation. No common bile duct calculi identified.Obscured pancreas. Small amount of upper abdominal ascites and a small left pleural effusion. CTAP 2024: Features of acute interstitial pancreatitis with peripancreatic fluid. Moderate hepatomegaly with diffuse hepatic steatosis. Allergies Allergy/AdvReac Type Severity Reaction Status Date / Time No Known Allergies Allergy Verified 08/04/25 02:14 Home Medications Medication Instructions Recorded Confirmed Type No Known Home Medications 02/11/23 08/04/25 History Patient History Medical History Concussion Surgical History No significant past surgical history Social History Smoking Status: Light tobacco smoker Tobacco Type: Cigarettes Second Hand Exposure: No; Do You Dip or Chew Tobacco: No; Hx Alcohol Use: Yes Alcohol type: hard liquor Hx Substance Use: Yes Preferred Language: Belgian Communication Ability: Effective Beliefs That Will Affect Care: None marital status: Single Current Living Situation: Other Current Living Situation Comment: roommate current occupational status: student Feels Safe at Home: Yes Assistive Devices: None Review of Systems Review of Systems: All other findings negative except as noted in HPI. Physical Exam Constitutional: WD/WN, vitals as above Respiratory: normal respiratory effort, lungs clear to auscultation Cardiovascular: RRR, no murmur, no edema Gastrointestinal (Abdomen): normal bowel sounds, soft, nontender, no hepatosplenomegaly Skin: no rashes, warm and dry Results & Data Vital Signs (Past 12 Hours) Vital Signs Temp Pulse Pulse Resp BP Pulse Ox O2 Del Method 08/07/25 07:33 98.8 F 73 18 131/72 97 Room Air 08/07/25 06:45 72 08/07/25 02:59 98.4 F 76 16 108/72 96 Room Air 08/06/25 23:02 99.0 F 87 16 126/78 98 Room Air 08/06/25 22:05 82 Laboratory Results 08/07/25 Range/Units 06:30 WBC 9.01 (4.8-10.8) K/ul RBC 4.88 (4.70-6.10) M/uL Hgb 14.2 (14.0-18.0) g/dl Hct 41.6 L (42.0-52.0) % MCV 85.2 (80.0-100.0) fL MCH 29.1 (25.0-34.0) pg MCHC 34.1 (32.0-36.0) g/dL RDW Std Deviation 42.3 (36.4-46.3) fL RDW Coeff of David 13.5 (11.5-14.5) % Plt Count 172 (130-400) K/uL MPV 9.0 L (9.4-12.4) fL Immature Gran % (Auto) 0.6 % Neut % (Auto) 79.4 % Lymph % (Auto) 10.2 % [place] % (Auto) 7.7 % Eos % (Auto) 1.7 % Baso % (Auto) 0.4 % Neut # (Auto) 7.16 H (1.40-6.50) K/uL Lymph # (Auto) 0.92 L (1.20-3.40) K/uL [place] # (Auto) 0.69 H (0.11-0.59) K/uL Eos # (Auto) 0.15 (0.00-0.50) K/uL Baso # (Auto) 0.04 (0.00-0.20) K/uL Immature Gran # (Auto) 0.05 (0.01-0.20) K/uL Sodium 135 L (136-145) mmol/L Potassium 4.1 (3.5-5.1) mmol/L Chloride 98 (98-107) mmol/L Carbon Dioxide 31 (21-32) mmol/L Anion Gap 6 (3-11) BUN 10 (6-23) mg/dl Creatinine 0.77 (0.6-1.4) mg/dl Est Cr Clr Drug Dosing 166.6 ml/min eGFR 130.62 BUN/Creatinine Ratio 13.0 (10-20) Glucose 94 (70-99(Fasting)) mg/dl Calcium 9.2 (8.6-10.3) mg/dl Total Bilirubin 1.0 D (0.2-1.0) mg/dl AST 19 (13-39) U/L ALT 11 (7-52) U/L Alkaline Phosphatase 57 (34-104) U/L C-Reactive Protein 14.66 H (0-0.5) mg/dl Total Protein 7.1 (6.0-8.3) gm/dl Albumin 3.4 (3.4-5.0) gm/dl Globulin 3.7 (2.5-4.0) gm/dl Albumin/Globulin Ratio 0.9 (0.9-2) Lipase 175 H (11-82) U/L Procalcitonin 0.16 (0-0.5) ng/ml PG Care Time/CCT Total # of Minutes Spent Total Time Spent with Patient: Total time spent is greater than 50% in coordination of care (as documented) at patient's floor/unit and/or counseling patient: Coding Level of Care Code 18235 IN/OBS CONSULT LVL 4,60M Diagnoses Alcohol use disorder F10.90
[2025-08-07 11:14] VITALS: BP 121/71; TEMP 99.3; O2SAT 96
--- NOTE | 2025-08-07 11:23 | Discharge Summary ---
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 This is thought to be secondary to alcohol use disorder. #pancreatitis - Suspect 2/2 alcohol use disorder. No previous history of pancreatitis. Leukocytosis, WBC 14.92. Lipase 1182. CTAP admission showing acute pancreatitis, moderate hepatomegaly, diffuse hepatic steatosis, no gallbladder abnormalities. Is not on any home medications. - slow but steady recovery over the course of 3 days. Delayed but persistent decline in lipase normalized to 147 at the time of discharge - pain resolved, tolerating a low-fat diet - see triglycerides below, total abstinence from alcohol, close follow-up in the outpatient clinic - GI consultation is obtained. No indication of further testing necessary at this time. Ultrasound was negative for stone, CT positive for interstitial pa ncreatitis likely secondary to alcohol as above #Hypertriglyceridemia -levels >500, no known Family history. This could well be secondary to his heavy recent alcohol use as well. - Will continue to monitor. 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 Typically drinks 3 to 4 days/week at baseline. - no symptoms of withdrawal - discussed the role of alcohol in regards to pancreatitis with the patient today. He is very understanding. Advised total abstinence from alcohol moving forward #elevated t bili - likely 2/2 pancreatitis above. T bili 1.7, AST 52, remained LFTs WNL. - trend CMP Admission HPI Per Admitting Provider Patient is a 20-year-old [employer] student who presented due to abdominal pain, nausea, vomiting that worsened throughout the day found to have pancreatitis with a lipase of 1182. This is thought to be secondary to alcohol use disorder. Patient seen at bedside. He stated throughout the day he has had worsening abdominal pain currently very significant however unable to quantify on the pain scale, pain does radiate to his back. He has had 1 dose of Tylenol 1G IV, morphine 4 Mg IV ordered to trial. He stated he vomited approximately 5 times today without any hematemesis. He also endorses dyspnea as it is difficult to breathe with his pain. Patient stated that during the college school year he does drink often typically 3-4 times per week in which she does blackout. This past week he has however drink every single day to the point of blacking out, he typically drinks liquor and stated he probably had 15-16 shots per day this week. He stated he does go several weeks occasionally without drinking like when he is home on breaks and does endorse signs of withdrawal during these breaks such as tachycardia, nausea, diaphoresis. He denies ever having a seizur e from alcohol withdrawal. He does not take any medications at home. He wishes to be full code. He stated his family does have a history of high cholesterol. Discharge Exam Constitutional WD/WN, vitals as above Eyes PERRL, conjunctivae normal, anicteric sclerae ENMT external ear and nose normal, oropharynx normal mucous membranes moist Respiratory normal respiratory effort, lungs clear to auscultation Cardiovascular RRR, no murmur, no edema Gastrointestinal (Abdomen) normal bowel sounds, soft, nontender, no hepatosplenomegaly Skin no rashes, warm and dry Neurologic PERRL, EOMI, accommodation nl, no face palsy, no dysarthria Discharge Plan Discharge Items Patient Disposition: Home - Self-Care Reason For Visit: PANCREATITIS, ALCOHOL USE Discharge Diagnosis: Acute Pancreatitis Hypertriglyceridemia Alcohol Overuse Condition on Discharge: Fair Health Concerns: - following low-fat diet, bland in nature and increase as tolerated - if you develop recurrent abdominal pain, nausea vomiting or dyspepsia please follow-up in the clinic or return to the emergency department if symptoms are rapid onset or more severe. - follow-up in the outpatient clinic in 1 to 2 weeks for recheck of labs and further referral if needed - very important to maintain total abstinence from alcohol for at least the next 3 to 6 months Activity: Resume your previous activity Exercise/Sports: Gradually increase as tolerated Non-emergency contact: Primary Care Provider Call non-emergency contact if: you have any medication questions, your symptoms worsen, your pain is concerning for you and you have a fever Follow-up/Referrals: [facility] [Primary Care Provider] - Sola Taylor DO [Resident] - 08/08/25 8:00 am (Hospital follow up appointment. If you are unable to keep this appointment please call to change. Please arrive 15 minutes prior to appointment time- Please bring ID and insurance card.) Diet: Low Fat Addtl Attending Provider Instructions: Recheck Triglycerides in 2-4 weeks Refer to Hepatobiliary Clinic if ongoing elevation, or recurrent pancreatitis Pending Studies at Discharge: No Stand-Alone Forms: My [employer], Smoking Cessation Medications and DC Order Prescriptions: No Action No Known Home Medications Discharge Orders: Discharge Order (Routine); Ordered 08/07/25 Ordered By: Larry Foss/Other Patient Handouts: Triglycerides, Understanding Pancreatitis, Pancreatitis Acute Dc Admission Data Admit Date/Time: 08/04/25 03:30 Attending Provider: Larry Velasquez Admit Provider: Guilherme Salas Primary Care Provider: [facility] Other Providers: Guilherme Salas; Betsey Vargas Hospital Stay Data Consultations 08/04/25 03:13 ED Decision to Admit Stat 08/07/25 07:22 Consult Gastroenterology Stat Diagnostic Imagining Performed 08/04/25 01:34 CT Abd and Pelvis [CT abd pelvis IV con only] Stat 08/06/25 11:15 US RUQ [US liver] Urgent Pending Results Patient Have Any Pending Studies at Discharge: No Discharge Instructions Given to Patient (Per Discharging Provider) Recheck Triglycerides in 2-4 weeks Refer to Hepatobiliary Clinic if ongoing elevation, or recurrent pancreatitis Total Time Total Time Spent Total Time Spent (In Minutes): 38 minutes spent coordinating with gastroenterology, discussing case with patient and family. Arranging follow-up Coding Level of Care Code 06522 INP/OBS DISCH >30 MIN Diagnoses Pancreatitis, alcoholic, acute K85.20 Nausea and vomiting R11.2 Alcohol use disorder F10.90 Abnormal LFTs (liver function tests) R79.89
[2025-08-07 11:34] VITALS: PULSE 69
== END 2025-08-07 12:30 | disposition home or self-care (01) | DRG 439 ==
LOC: ED 01:16 → 2N 03:30 → SUATTDRO 03:30 → 2N 04:19